=== PATIENT | male | born 2000 | race Asian ===

== ENCOUNTER 2021-01-18 16:14 | Emergency (ER) | payer OTHER ==
[~2021-01-18] VITALS: Ht 172.7 cm; Wt 85.5 kg
--- NOTE | 2021-01-18 18:02 | REP ---
INDICATION: pain/swelling right testical COMPARISON: None. TECHNIQUE: Bahena scale and color Doppler evaluation using linear and curved array transducer with color Doppler evaluation. FINDINGS: There is mildly asymmetric increased flow to the right testicle suggesting orchitis and correlation is recommended. The testicles are otherwise normal in contour, size, echogenicity, and appearance. Few bilateral epididymal head cysts are identified measuring up to 5 mm on the right and 3 mm on the left. There is no evidence for intratesticular mass lesion, infectious/inflammatory process, or torsion. No obvious hydroceles or varicoceles are identified. Right testicle measures 3.5 x 2.2 x 2.6 cm. Left testicle measures 3.8 x 1.8 x 2.6 cm. IMPRESSION: Mild right orchitis suggested. <Electronically signed by Juve Gifford > 01/18/21 [id number]
[2021-01-18] MEDS ORDERED: KETOROLAC TROMETHAMINE 10 MG TAB PO ONE (19:20)
[2021-01-18] MEDS ORDERED: IBUP80TA PO (20:30)
[2021-01-18 20:47] VITALS: BP 137/97
[2021-01-18 21:01] LABS: GC DNA AMPLIFICATION NEGATIVE (NEGATIVE)
== END 2021-01-18 20:50 | disposition home or self-care (01) ==
LOC: M ED 16:14
DX: N45.2 Orchitis (principal); N50.811 Right testicular pain; Z91.013 Allergy to seafood